=== PATIENT | female | born 1935 | race Caucasian/White ===

== ENCOUNTER → 2017-01-07 | Outpatient (CLI) | payer BC ==
[~2017-01-07] MED LIST: ASPI81TA21 PO; ATOR80TA PO; CALCTAB5 PO; CIPR-255 PO; DICL1GEL12 TOP; FISHOIL PO; MELO7.5T7 PO; METO1TAB66 PO; MULT-190 PO; PANT40TA PO; TRAZ1TAB16 PO
[2017-01-07 09:46] LABS: BLOOD UREA NITROGEN 15 mg/dl (7-18); BUN/CREATININE RATIO 17.5 (10-20); CALCIUM 8.9 mg/dl (8.5-10.1); CARBON DIOXIDE 27 mmol/L (21-32); CHLORIDE 105 mmol/L (98-107); CREATININE 0.87 mg/dl (0.60-1.20); GLUCOSE 99 mg/dl (70-99); POTASSIUM 4.1 mmol/L (3.5-5.1); SODIUM 138 mmol/L (136-145)
[2017-01-07 09:48] LABS: ESTIMATED AVERAGE GLUCOSE 120 mg/dl; HA1C FLAG Normal (Normal)
--- NOTE | 2017-01-12 08:35 | CODING QUERY MEDICAL NECESSITY ---
SUPPORTING DIAGNOSIS NEEDED A supporting diagnosis is required for the test/procedure performed on this patient in order for us to be reimbursed by the patient's insurance. Please provide a supporting diagnosis for the following test/procedure listed below next to the test name along with your signature. *If there is no additional diagnosis for this patient that would support the following test/procedure please document that below next to the test/procedure. Test(s)/Procedure(s) that require a supporting diagnosis: DOS 01/07 * Hba1c DIAGNOSIS: Provider Signature: Date: Thank you Amelia [facility] Once completed, please kindly fax back to [phone] For questions please call [phone]
== END | disposition home or self-care (01) ==
LOC: C.LAB1850 08:28
PROVIDERS: ATTEND Internal Medicine
DX: R73.03 Prediabetes (principal); E53.8 Deficiency of other specified B group vitamins; I25.10 Atherosclerotic heart disease of native coronary artery without angina pectoris; R73.9 Hyperglycemia, unspecified

== ENCOUNTER → 2017-04-13 | Outpatient (CLI) | payer BC ==
[~2017-04-13] MED LIST changes: +METO-452 PO; -METO1TAB66 PO; +TRAZ-119 PO; -TRAZ1TAB16 PO
== END | disposition home or self-care (01) ==
LOC: C.RDSM 10:50
PROVIDERS: ATTEND Physical Medicine & Rehabilitation Sports Medicine
DX: M25.561 Pain in right knee (principal); M25.562 Pain in left knee

== ENCOUNTER → 2017-08-13 | Outpatient (CLI) | payer BC ==
[~2017-08-13] MED LIST changes: -METO-452 PO; +METO1TAB66 PO; -TRAZ-119 PO; +TRAZ1TAB16 PO
[2017-08-13 09:46] LABS: BASO % 0.2 %; BASO ABS # 0.01 K/uL (0-0.2); COMPLETE YES; EOS % 2.8 %; HEMATOCRIT 40.1 % (37-47); IG% 0.2 %; LYMPH % 23.9 %; LYMPH ABS # 1.21 K/uL (1.2-3.4); MEAN CELL VOLUME 94.4 fL (80-100); MEAN CORPUSCULAR HEMOGLOBIN 31.3 pg (25-34); MEAN CORPUSCULAR HGB CONC 33.2 g/dl (32-36); MEAN PLATELET VOLUME 9.2 fL (7.4-10.4); MONO % 11.3 %; NEUT % 61.6 %; PLATELET COUNT 230 K/uL (130-400); RED BLOOD COUNT 4.25 M/uL (4.2-5.4); WHITE BLOOD COUNT 5.06 K/uL (4.8-10.8)
[2017-08-13 09:55] LABS: ALT/SGPT 32 U/L (12-78); AST/SGOT 20 U/L (15-37); BLOOD UREA NITROGEN 16 mg/dl (7-18); BUN/CREATININE RATIO 18.9 (10-20); CALCIUM 9.2 mg/dl (8.5-10.1); CARBON DIOXIDE 26 mmol/L (21-32); CHLORIDE 108 mmol/L (98-107); CREATININE 0.85 mg/dl (0.60-1.20); GLUCOSE 93 mg/dl (70-99); POTASSIUM 4.4 mmol/L (3.5-5.1); SODIUM 140 mmol/L (136-145)
[2017-08-13 09:58] LABS: CHOLESTEROL 157 mg/dl (0-200); CHOLESTEROL/HDL RATIO 2.8; HDL CHOLESTEROL 57 mg/dl; LDL CHOLESTEROL CALCULATED 82 mg/dl; TRIGLYCERIDES 89 mg/dl (0-150); VERY LOW DENSITY LIPOPROT CALC 18 mg/dl
[2017-08-13 09:59] LABS: ESTIMATED AVERAGE GLUCOSE 126 mg/dl; HA1C FLAG Normal (Normal)
== END | disposition home or self-care (01) ==
LOC: C.LAB1850 08:27
PROVIDERS: ATTEND Internal Medicine
DX: R73.03 Prediabetes (principal); E53.8 Deficiency of other specified B group vitamins; E78.5 Hyperlipidemia, unspecified; R73.9 Hyperglycemia, unspecified

== ENCOUNTER → 2018-01-31 | Outpatient (CLI) | payer BC ==
[~2018-01-31] MED LIST changes: +METO-452 PO; -METO1TAB66 PO; +TRAZ-119 PO; -TRAZ1TAB16 PO
[2018-01-31 10:50] LABS: ALT/SGPT 21 U/L (12-78); AST/SGOT 12 U/L (15-37); BLOOD UREA NITROGEN 25 mg/dl (7-18); CALCIUM 8.6 mg/dl (8.5-10.1); CARBON DIOXIDE 25 mmol/L (21-32); CHOLESTEROL 131 mg/dl (0-200); CREATININE 0.89 mg/dl (0.60-1.20); GLUCOSE 86 mg/dl (70-99); POTASSIUM 4.2 mmol/L (3.5-5.1); SODIUM 141 mmol/L (136-145)
[2018-01-31 11:01] LABS: LDL CHOLESTEROL CALCULATED 67 mg/dl
== END | disposition home or self-care (01) ==
LOC: C.LAB1850 09:04
PROVIDERS: ATTEND Internal Medicine
DX: E78.5 Hyperlipidemia, unspecified (principal); R73.03 Prediabetes; F41.8 Other specified anxiety disorders; E53.8 Deficiency of other specified B group vitamins; M81.0 Age-related osteoporosis without current pathological fracture

== ENCOUNTER → 2018-06-06 | Outpatient (CLI) | payer BC ==
[~2018-06-06] MED LIST changes: +ASPI-319 PO; -ASPI81TA21 PO; -TRAZ-119 PO; +TRAZ1TAB96 PO
--- NOTE | 2018-06-06 16:49 | DIAGNOSTIC IMAGING REPORT ---
L RIBS UNILATERAL WITH PA CHEST CLINICAL HISTORY: R29.898 Suspected fracture of rib of left sideR07.81 Rib pain on trauma. Pain. COMPARISON STUDY: None FINDINGS: Negative left ribs. No acute process of the chest. IMPRESSION: Negative study The above report was generated using voice recognition software. It may contain grammatical, syntax or spelling errors. Electronically signed by: Luis Alfredo Olson M.D. 06/06/2018 4:48 PM Dictated Date/Time: 06/06/2018 4:44 PM
== END | disposition home or self-care (01) ==
LOC: C.RAD1850 16:25
PROVIDERS: ATTEND Nurse Practitioner Adult Health
DX: R07.81 Pleurodynia (principal); R29.898 Other symptoms and signs involving the musculoskeletal system; W19.XXXA Unspecified fall, initial encounter

== ENCOUNTER → 2018-06-27 | Outpatient (CLI) | payer BC | END | disposition home or self-care (01) | LOC: C.LAB1850 11:19 | PROVIDERS: ATTEND Internal Medicine | DX: E55.9 Vitamin D deficiency, unspecified (principal); E53.8 Deficiency of other specified B group vitamins ==

== ENCOUNTER 2023-01-01 17:57 | Observation (INO) ==
--- NOTE | 2023-01-01 18:08 | ED Triage Note ---
Date of Service January 01, 2023 History of Present Illness This patient was briefly evaluated while in triage. An abbreviated physical exam was performed. This patient is a 87-year-old Female with past medical history of right macular degeneration who presents to the ED for evaluation of left eye visual disturbance. The patient was referred to the emergency department by her eye doctor for possible TIA work-up. The patient reports that she has always had visual issues with the right eye, but her left visual disturbance started yesterday, but it is back to normal today. She reports that she had vision loss for approximate 10 minutes. She denies any eye pain or headache. Physical Exam CONSTITUTIONAL: Healthy and well nourished. Alert and oriented X 3. HEENT: No scleral icterus or conjunctival injection. Pupils are equal and round and reactive to light RESPIRATORY: Clear to auscultation bilaterally with no wheezing, crackles, rhonchi or stridor. CARDIOVASCULAR: Regular rate and rhythm with no murmurs, rubs or gallops. MUSCULOSKELETAL: Equal handgrip bilaterally. INTEGUMENTARY: No rash or other significant dermatologic conditions noted. HEMATOLOGIC: No ecchymosis or petechiae. PSYCHIATRIC: Positive affect. NEUROLOGIC: Cranial nerves II-XII grossly intact. No focal neurologic deficits noted. Initial orders for labs and / or imaging were placed and patient was placed in the waiting area until a bed is available. Please see further documentation for the full ED course. MDM / Impression Impression Impression: AF (amaurosis fugax), HTN (hypertension)
[2023-01-01 20:00] LABS: Basophils # (auto) 0.03 K/uL (0-0.2); Basophils % (auto) 0.4 %; Eosinophils # (auto) 0.09 K/uL (0-0.50); Eosinophils % (auto) 1.2 %; Hematocrit (blood only) 39.1 % (37.0-47.0); Hemoglobin 13.3 g/dl (12.0-16.0); Immature Granulocytes # (auto) 0.03 K/uL (0.01-0.20); Immature Granulocytes % (auto) 0.4 %; Lymphocytes # (auto) 1.15 K/uL (1.2-3.4); Lymphocytes % (auto) 15.2 %; Mean Corpuscular Hemoglobin 31.7 pg (25.0-34.0); Mean Corpuscular Volume 93.1 fL (80.0-100.0); Mean Platelet Volume 9.1 fL (9.4-12.4); Monocytes # (auto) 0.99 K/uL (0.11-0.59); Neutrophils % (auto) 69.8 %; Platelet Count 251 K/uL (130-400); RDW Coefficient of Variation 13.4 % (11.5-14.5); RDW Standard Deviation 45.7 fL (36.4-46.3); White Blood Count 7.59 K/ul (4.8-10.8)
[2023-01-01 20:19] LABS: Alanine Aminotransferase 15 U/L (7-52); Albumin Globulin Ratio 1.6 (0.9-2); Albumin Level 4.2 gm/dl (3.4-5.0); Alkaline Phosphatase 80 U/L (34-104); Anion Gap 5 (3-11); Aspartate Aminotransferase 15 U/L (13-39); BUN Creatinine Ratio 20.6 (10-20); Bilirubin,Total 0.7 mg/dl (0.2-1.0); Blood Urea Nitrogen 20 mg/dl (6-23); Calcium 9.8 mg/dl (8.5-10.1); Carbon Dioxide 25 mmol/L (21-32); Chloride 110 mmol/L (98-107); Est GFR (African American) 61.3 ml/min; Est GFR (Non-African American) 52.9 ml/min; Globulin 2.6 gm/dl (2.5-4.0); Glucose 94 mg/dl (70-99(Fasting)); Potassium 4.7 mmol/L (3.5-5.1); Sodium 140 mmol/L (136-145); Total Protein 6.8 gm/dl (6.0-8.3)
[2023-01-01 20:25] LABS: Troponin I High Sensitivity 6.1 pg/ml (0-14)
[2023-01-01 20:28] LABS: Partial Thromboplastin Ratio 1.1; Partial Thromboplastin Time 28.9 Seconds (21.0-31.0); Prothrombin Time 10.6 Seconds (9.0-12.0)
[2023-01-01] MEDS ORDERED: ASPIRIN 81 MG CHEW PO STA (22:44)
--- NOTE | 2023-01-01 22:46 | Emergency Department Note ---
Impression & Plan AF (amaurosis fugax), HTN (hypertension) ED Provider Note Provider: Michael Radford MD DATE OF SERVICE: 01/01/2023 CHIEF COMPLAINT: Transient left visual changes HISTORY OF PRESENT ILLNESS: Patient is a 87-year-old female history of CABG, hypertension, and CAD presenting here referred by her eye doctor today. Patient states last evening she had a transient episode where a black curtain came across her left eye vision. States she is history of distant cataract surgery as well as glaucoma in the right eye. Has not had an episode like this before. States it was transient and resolved. Went to her eye doctor today. She she has been having issues with her glasses and vision for some time. Blood pressure somewhat elevated there and based on the story after evaluation sent here for further evaluation. Maybe a little bit of pain under the left eye reported. PAST MEDICAL HISTORY: As noted above MEDICATIONS: Reviewed home medications but not consistently taking aspirin. Did not take her meds yet today. SOCIAL HISTORY: , lives by herself PHYSICAL EXAM: GENERAL: alert and oriented in no acute distress on stretcher Head: normocephalic and atraumatic EYES: No injection, discharge or icterus. PERRL, EOMI. no gross visual field deficits on exam. NECK: Trachea midline. Supple. ENT: Mucous membranes pink and moist. Pharynx without erythema or exudate. LUNGS: Airway patent. No retractions. Breath sounds clear with good air entry bilaterally. HEART: Regular rate and rhythm. No chest wall tenderness SKIN: Acyanotic, warm, dry EXTREMITIES: Without tenderness or deformity with trace pedal swelling bilaterally. NEUROLOGICAL: No focal deficits. No aphasia. No facial droop or slurred speech. Normal strength and tone in the extremities. Sensation to gross touch normal. Ambulatory. EK bpm normal sinus rhythm. No PVC or PAC. No acute ST segment elevation or depression with a QTc of 435 CONTINUOUS CARDIAC MONITORING: was ordered and showed a heart rate of 60s-70s bpm in normal sinus rhythm Patient's laboratory studies and imaging reviewed. Differential includes Infection, dehydration, metabolic abnormality, hypo/hyperglycemia, electrolyte disturbance, anemia, hypoxia, cardiac sources, intracerebral event/neurologic, ophthalmologic as well as other pathologies. IMPRESSION/MEDICAL DECISION MAKING: No significant numbness or weakness or gross gross deficits. No facial droop. Denies significant issues with the right eye. Story sounds concerning for amaurosis fugax. Resolved symptoms at this time. Did complete pressures of the eyes (R 13, L 14) here but had a full evaluation of the eye doctor earlier today. CT scans including angiograms of the head and neck will be obtained. Per report no evidence of any hemorrhage or mass effect or acute stroke and unremarkable angiograms. They do note some symmetric bilateral orbital lesions determinant and almost certainly chronic per report. Again was at the eye doctor earlier today. ESR and CRP was sent. Not elevated. No significant electrolyte abnormality or signs of renal dysfunction today. Given aspirin here. Given the transient concerning neurological findings discussed with her as well as the hospitalist staying for further neurological evaluation. Blood pressure modestly elevated here. Patient does make couple of statements to me about spiders coming from the ceiling and later nursing reported that they saw someone standing behind her. Unclear if she may be experiencing some slight hallucinations as well. Urinalysis pending. DIAGNOSIS: amaurosis fugax, hypertension DISPOSITION: Hospitalist will evaluate Patient was agreeable with this plan. Past Med/Surg History Medical History Acid reflux Acute sinusitis Arteriosclerosis of carotid artery CAD (coronary artery disease) Chronic sinusitis Depression with anxiety Hyperlipidemia Hypertension Large pleural effusion Osteoarthritis of knee Osteoporosis Peripheral vascular disease Pre-diabetes Urinary tract infection Vitamin B12 deficiency Vitamin D deficiency Surgical History History of arthroscopy of knee History of cataract surgery Hx of CABG Hx of right coronary artery stent placement Family History Father Atrial fibrillation Cancer Brother Atrial fibrillation Denies family history of Colon cancer Ovarian cancer Prostate cancer Myocardial infarction Breast cancer Social History Smoking Status: Never smoker Hx Alcohol Use: No Hx Substance Use: No Preferred Language: Togolese Visual Impairment: No Limitations Hearing Ability: Normal marital status: Current Living Situation: Spouse current occupational status: retired Feels Safe at Home: Yes Childhood Exposure to Second-Hand Smoke: No Dental Care, Regularly: Yes Physical Activity Frequency: Daily Seatbelt Use: always Sunscreen Use: No Allergies Allergies Allergy/AdvReac Type Severity Reaction Status Date / Time Sulfa (Sulfonamide Allergy Mild RASH Verified 10/19/22 10:19 Antibiotics) Home Meds Home Medications Medication Instructions Recorded Confirmed aspirin 81 mg tablet 81 mg PO DAILY 06/26/19 09/02/22 cyanocobalamin (vitamin B-12) 1,000 mcg PO DAILY #1 tab 06/26/19 09/02/22 1,000 mcg tablet diclofenac sodium 1 % topical gel 2 gm topical QID #1 g 06/26/19 09/02/22 nitroglycerin 0.4 mg sublingual 0.4 mg sublingual Q5M PRN chest 06/26/19 09/02/22 tablet pain #25 tabs vit C 226 mg-vit E 90 mg-copper 1 cap PO BID 06/26/19 09/02/22 0.8 mg-zinc oxide-lutein 5 mg capsule diclofenac sodium 50 mg 50 mg PO BID 08/30/19 09/02/22 tablet,delayed release cholecalciferol (vitamin D3) 50 4,000 unit PO DAILY 07/31/21 09/02/22 mcg (2,000 unit) capsule Previous Rx's Medication Instructions Recorded ondansetron 4 mg disintegrating 4 mg PO TID PRN nausea and 02/19/22 tablet vomiting #30 tabs famotidine 40 mg tablet 40 mg PO DAILY PRN acid reflux #90 03/12/22 tabs isosorbide mononitrate 30 mg 30 mg PO DAILY #90 tabs 08/26/22 tablet,extended release 24 hr metoprolol succinate 50 mg 50 mg PO DAILY #90 tabs 08/26/22 tablet,extended release 24 hr rosuvastatin 40 mg tablet 40 mg PO DAILY #90 tabs 08/26/22 tramadol 50 mg tablet 50 mg PO Q12H PRN pain #60 tabs 09/02/22 Results & Data (ED) Vital Signs Vital Signs - 24 hr 01/01/23 18:03 01/01/23 18:07 01/01/23 18:07 Temperature 36.8 C Temperature Source Temporal Artery Scan Pulse Rate 78 79 Pulse Rate [Apical] Respiratory Rate 20 18 Respiratory Effort / Characteristics Non-Labored Respiratory Depth Normal Blood Pressure 138/77 148/82 H Blood Pressure [Right Arm] Blood Pressure Mean 97 104 Blood Pressure Mean [Right Arm] Pulse Oximetry 97 97 97 Oxygen Delivery Method Room Air Sepsis Recent Fever Within 48 Hours No Sepsis New/Unexplained Change in Mental Status N/A Sepsis Action Taken by Nursing No Action Required 01/01/23 22:43 01/01/23 23:30 Temperature Temperature Source Pulse Rate 70 Pulse Rate [Apical] 82 Respiratory Rate 18 Respiratory Effort / Characteristics Non-Labored Spontaneous Respiratory Depth Normal Blood Pressure Blood Pressure [Right Arm] 154/85 H Blood Pressure Mean Blood Pressure Mean [Right Arm] 108 Pulse Oximetry 96 Oxygen Delivery Method Room Air Sepsis Recent Fever Within 48 Hours Sepsis New/Unexplained Change in Mental Status Sepsis Action Taken by Nursing Laboratory Data 01/01/23 19:33 01/01/23 19:30 Lab Results 01/01/23 01/01/23 01/01/23 Range/Units 19:30 19:33 19:33 WBC 7.59 (4.8-10.8) K/ul RBC 4.20 (4.20-5.40) M/uL Hgb 13.3 (12.0-16.0) g/dl Hct 39.1 (37.0-47.0) % MCV 93.1 (80.0-100.0) fL MCH 31.7 (25.0-34.0) pg MCHC 34.0 (32.0-36.0) g/dL RDW Std Deviation 45.7 (36.4-46.3) fL RDW Coeff of Rhys 13.4 (11.5-14.5) % Plt Count 251 (130-400) K/uL MPV 9.1 L (9.4-12.4) fL Immature Gran % (Auto) 0.4 % Neut % (Auto) 69.8 % Lymph % (Auto) 15.2 % Woodson % (Auto) 13.0 % Eos % (Auto) 1.2 % Baso % (Auto) 0.4 % Neut # (Auto) 5.30 (1.40-6.50) K/uL Lymph # (Auto) 1.15 L (1.2-3.4) K/uL Woodson # (Auto) 0.99 H (0.11-0.59) K/uL Eos # (Auto) 0.09 (0-0.50) K/uL Baso # (Auto) 0.03 (0-0.2) K/uL Immature Gran # (Auto) 0.03 (0.01-0.20) K/uL ESR (0-30) mm/hr PT 10.6 (9.0-12.0) Seconds INR 1.0 (0.9-1.1) APTT 28.9 (21.0-31.0) Seconds PTT Ratio 1.1 Sodium 140 (136-145) mmol/L Potassium 4.7 (3.5-5.1) mmol/L Chloride 110 H (98-107) mmol/L Carbon Dioxide 25 (21-32) mmol/L Anion Gap 5 (3-11) BUN 20 (6-23) mg/dl Creatinine 0.97 (0.6-1.2) mg/dl Est Cr Clr Drug Dosing Not Reportable Est GFR ( Amer) 61.3 ml/min Est GFR (Non-Af Amer) 52.9 ml/min BUN/Creatinine Ratio 20.6 H (10-20) Glucose 94 (70-99(Fasting)) mg/dl Calcium 9.8 (8.5-10.1) mg/dl Total Bilirubin 0.7 (0.2-1.0) mg/dl AST 15 (13-39) U/L ALT 15 (7-52) U/L Alkaline Phosphatase 80 (34-104) U/L Troponin I High Sens 6.1 (0-14) pg/ml C-Reactive Protein < 0.50 (0-0.5) mg/dl Total Protein 6.8 (6.0-8.3) gm/dl Albumin 4.2 (3.4-5.0) gm/dl Globulin 2.6 (2.5-4.0) gm/dl Albumin/Globulin Ratio 1.6 (0.9-2) SARS-CoV-2, RNA, NAAT (NEGATIVE) 01/01/23 01/02/23 Range/Units 19:33 00:20 WBC (4.8-10.8) K/ul RBC (4.20-5.40) M/uL Hgb (12.0-16.0) g/dl Hct (37.0-47.0) % MCV (80.0-100.0) fL MCH (25.0-34.0) pg MCHC (32.0-36.0) g/dL RDW Std Deviation (36.4-46.3) fL RDW Coeff of Rhys (11.5-14.5) % Plt Count (130-400) K/uL MPV (9.4-12.4) fL Immature Gran % (Auto) % Neut % (Auto) % Lymph % (Auto) % Woodson % (Auto) % Eos % (Auto) % Baso % (Auto) % Neut # (Auto) (1.40-6.50) K/uL Lymph # (Auto) (1.2-3.4) K/uL Woodson # (Auto) (0.11-0.59) K/uL Eos # (Auto) (0-0.50) K/uL Baso # (Auto) (0-0.2) K/uL Immature Gran # (Auto) (0.01-0.20) K/uL ESR 13 (0-30) mm/hr PT (9.0-12.0) Seconds INR (0.9-1.1) APTT (21.0-31.0) Seconds PTT Ratio Sodium (136-145) mmol/L Potassium (3.5-5.1) mmol/L Chloride (98-107) mmol/L Carbon Dioxide (21-32) mmol/L Anion Gap (3-11) BUN (6-23) mg/dl Creatinine (0.6-1.2) mg/dl Est Cr Clr Drug Dosing Est GFR ( Amer) ml/min Est GFR (Non-Af Amer) ml/min BUN/Creatinine Ratio (10-20) Glucose (70-99(Fasting)) mg/dl Calcium (8.5-10.1) mg/dl Total Bilirubin (0.2-1.0) mg/dl AST (13-39) U/L ALT (7-52) U/L Alkaline Phosphatase (34-104) U/L Troponin I High Sens (0-14) pg/ml C-Reactive Protein (0-0.5) mg/dl Total Protein (6.0-8.3) gm/dl Albumin (3.4-5.0) gm/dl Globulin (2.5-4.0) gm/dl Albumin/Globulin Ratio (0.9-2) SARS-CoV-2, RNA, NAAT NEGATIVE (NEGATIVE) Administered Medications Discontinued Medications Aspirin (Aspirin 81 Mg Chew) 324 mg PO NOW STA Stop: 01/01/23 22:45 Last Admin: 01/01/23 23:27 Dose: 324 mg Documented By: JATINDER Ioversol (Optiray 320 500ml) 101 ml IV ONCE ONE Stop: 01/01/23 22:59 Last Admin: 01/01/23 22:51 Dose: 101 ml Documented By: SHANELL Imaging Data Radiologist's Impression: Head CT 01/01/23 22:[address] OF THE BRAIN; CT ANGIOGRAM OF THE BRAIN; CT ANGIOGRAM OF THE NECK CLINICAL HISTORY: Generalized weakness. Left-sided visual changes. COMPARISON STUDY: No priors. TECHNIQUE: Unenhanced axial CT scan of the brain is performed. Subsequently, following the IV administration of 101 of Optiray 320, CT angiogram of the head and neck was performed from the aortic arch to the vertex. Images are reviewed in the axial, sagittal, and coronal planes. 3-D MIPS images are created and assessed. IV contrast was administered without complication. All measurements were calculated based on NASCET criteria. A dose lowering technique was utilized adhering to the principles of ALARA. CT DOSE: 1066.04 mGy.cm FINDINGS: Brain parenchyma: There is age-related involutional change noting moderate subcortical and periventricular microangiopathic disease. There is no hemorrhage, mass effect, or evidence of acute territorial ischemia by CT criteria. There is no evidence of enhancing mass lesion on the angiogram phase images. The ventricles, sulci, and cisterns are prominent secondary to positional change. Xavier-white matter differentiation is preserved. No extra- axial fluid collection is seen. Thoracic aorta: There is atherosclerotic calcification of the thoracic aorta. Visualized portions of the thoracic aorta are normal in caliber. The aortic arch demonstrates standard 3-vessel anatomy. Right carotid arterial system: The right common carotid artery is widely patent, as are the right internal and external carotid arteries. Advanced calcified plaque is seen in the carotid bulb. Left carotid arterial system: The left common carotid artery is widely patent, as are the left internal and external carotid arteries. Advanced calcified plaque is seen in the carotid bulb. Vertebral arteries: The vertebral arteries are widely patent bilaterally noting right-sided dominance. Subclavian arteries: Widely patent bilaterally. Intracranial vasculature: There is atherosclerotic calcification of the cavernous carotid and vertebral arteries. The internal carotid arteries are patent at the skull base, as are the anterior and middle cerebral arteries bilaterally. The vertebrobasilar system and posterior cerebral arteries are widely patent. There is origin of the left posterior cerebral artery. A posterior communicating artery is seen on the right. The right vertebral artery is dominant. There is no aneurysm, high-grade stenosis, or focal vessel cut off seen throughout the intracranial circulation. Jugular veins: Patent bilaterally. Dural sinuses: Patent. Lung apices: Partially visualized upper lobe lung parenchyma appears clear. Soft tissues: The visualized pharyngeal soft tissues are normal in appearance noting angiographic phase technique. The oropharyngeal airway appears widely patent. The thyroid gland is enlarged and heterogeneous consistent with goiter. This extends in the superior mediastinum. The salivary glands are normal in ap pearance. No cervical lymphadenopathy is seen. Skeletal structures: The skeletal structures are osteopenic. The calvarium appears intact. The cervical spine is maintained noting multilevel spondylosis. No lytic or blastic lesion is seen. The patient is status post midline s ternotomy. Orbits: The bony orbits are intact. There are bilateral ocular lens implants. There are bilateral orbital soft tissue lesions. A 1.4 cm ovoid nodule is seen medial to the right ocular globe on image #102 and a similar appearing 0.9 cm nodule is seen medial to the left ocular globe on image #101. A 1.4 cm lesion posterior to the right globe seen on image #121 partially fills with contrast and likely represents a varix. A similar-appearing lesion is seen on the left on image #119. Sinuses and mastoids: The paranasal sinuses are clear. The mastoid air cells are well pneumatized. IMPRESSION: 1. There is no hemorrhage, mass effect, or evidence of acute territorial isc hemia by CT criteria. 2. Unremarkable CT angiogram of the brain. 3. Unremarkable CT angiogram of the neck. 4. There are relatively symmetric bilateral orbital lesions as above. These are pathologically indeterminant, and likely represent hemangiomas and/or venous varices. These are almost certainly chronic and of doubtful acute significance. Consider nonemergent follow-up with ophthalmology. ACT 112: Negative or not required by law. Electronically signed by: Michael Graves M.D. 01/01/2023 11:18 PM Head CTA 01/01/23 22:[address] OF THE BRAIN; CT ANGIOGRAM OF THE BRAIN; CT ANGIOGRAM OF THE NECK CLINICAL HISTORY: Generalized weakness. Left-sided visual changes. COMPARISON STUDY: No priors. TECHNIQUE: Unenhanced axial CT scan of the brain is performed. Subsequently, following the IV administration of 101 of Optiray 320, CT angiogram of the head and neck was performed from the aortic arch to the vertex. Images are reviewed in the axial, sagittal, and coronal planes. 3-D MIPS images are created and assessed. IV contrast was administered without complication. All measurements were calculated based on NASCET criteria. A dose lowering technique was utili zed adhering to the principles of ALARA. CT DOSE: 1066.04 mGy.cm FINDINGS: Brain parenchyma: There is age-related involutional change noting moderate subcortical and periventricular microangiopathic disease. There is no he morrhage, mass effect, or evidence of acute territorial ischemia by CT criteria. There is no evidence of enhancing mass lesion on the angiogram phase images. The ventricles, sulci, and cisterns are prominent secondary to positional change. Xavier-white matter differentiation is preserved. No extra-axial fluid collection is seen. Thoracic aorta: There is atherosclerotic calcification of the thoracic aorta. Visualized portions of the thoracic aorta are normal in caliber. The aortic arch demonstrates standard 3-vessel anatomy. Right carotid arterial system: The right common carotid artery is widely patent, as are the right internal and external carotid arteries. Advanced calcified plaque is seen in the carotid bulb. Left carotid arterial system: The left common carotid artery is widely patent, as are the left internal and external carotid arteries. Advanced calcified plaque is seen in the carotid bulb. Vertebral arteries: The vertebral arteries are widely patent bilaterally noting right-sided dominance. Subclavian arteries: Widely patent bilaterally. Intracranial vasculature: There is atherosclerotic calcification of the cavernous carotid and vertebral arteries. The internal carotid arteries are patent at the skull base, as are the anterior and middle cerebral arteries bilaterally. The vertebrobasilar system and posterior cerebral arteries are widely patent. There is origin of the left posterior cerebral artery. A posterior communicating artery is seen on the right. The right vertebral artery is dominant. There is no aneurysm, high-grade stenosis, or focal vessel cut off seen throughout the intracranial circulation. Jugular veins: Patent bilaterally. Dural sinuses: Patent. Lung apices: Partially visualized upper lobe lung parenchyma appears clear. Soft tissues: The visualized pharyngeal soft tissues are normal in appearance noting angiographic phase technique. The oropharyngeal airway appears widely patent. The thyroid gland is enlarged and heterogeneous consistent with goiter. This extends in the superior mediastinum. The salivary glands are normal in appearance. No cervical lymphadenopathy is seen. Skeletal structures: The skeletal structures are osteopenic. The calvarium appears intact. The cervical spine is maintained noting multilevel spondylosis. No lytic or blastic lesion is seen. The patient is status post midline sternotomy. Orbits: The bony orbits are intact. There are bilateral ocular lens implants. There are bilateral orbital soft tissue lesions. A 1.4 cm ovoid nodule is seen medial to the right ocular globe on image #102 and a similar appearing 0.9 cm nodule is seen medial to the left ocular globe on image #101. A 1.4 cm lesion posterior to the right globe seen on image #121 partially fills with contrast and likely represents a varix. A similar-appearing lesion is seen on the left on image #119. Sinuses and mastoids: The paranasal sinuses are clear. The mastoid air cells are well pneumatized. IMPRESSION: 1. There is no hemorrhage, mass effect, or evidence of acute territorial ischemia by CT criteria. 2. Unremarkable CT angiogram of the brain. 3. Unremarkable CT angiogram of the neck. 4. There are relatively symmetric bilateral orbital lesions as above. These are pathologically indeterminant, and likely represent hemangiomas and/or venous varices. These are almost certainly chronic and of doubtful acute significance. Consider nonemergent follow-up with ophthalmology. ACT 112: Negative or not required by law. Electronically signed by: Michael Graves M.D. 01/01/2023 11:18 PM Neck CTA 01/01/23 22:[address] OF THE BRAIN; CT ANGIOGRAM OF THE BRAIN; CT ANGIOGRAM OF THE NECK CLINICAL HISTORY: Generalized weakness. Left-sided visual changes. COMPARISON STUDY: No priors. TECHNIQUE: Unenhanced axial CT scan of the brain is performed. Subsequently, following the IV administration of 101 of Optiray 320, CT angiogram of the head and neck was performed from the aortic arch to the vertex. Images are reviewed in the axial, sagittal, and coronal planes. 3-D MIPS images are created and asse ssed. IV contrast was administered without complication. All measurements were calculated based on NASCET criteria. A dose lowering technique was utilized adhering to the principles of ALARA. CT DOSE: 1066.04 mGy.cm FINDINGS: Brain parenchyma: There is age-related involutional change noting moderate subcortical and periventricular microangiopathic disease. There is no hemorrhage, mass effect, or evidence of acute territorial ischemia by CT criteria. There is no evidence of enhancing mass lesion on the angiogram phase images. The ventricles, sulci, and cisterns are prominent secondary to positional change. Xavier-white matter differentiation is preserved. No extra- axial fluid collection is seen. Thoracic aorta: There is atherosclerotic calcification of the thoracic aorta. Visualized portions of the thoracic aorta are normal in caliber. The aortic arch demonstrates standard 3-vessel anatomy. Right carotid arterial system: The right common carotid artery is widely patent, as are the right internal and external carotid arteries. Advanced calcified plaque is seen in the carotid bulb. Left carotid arterial system: The left common carotid artery is widely patent, as are the left internal and external carotid arteries. Advanced calcified plaque is seen in the carotid bulb. Vertebral arteries: The vertebral arteries are widely patent bilaterally noting right-sided dominance. Subclavian arteries: Widely patent bilaterally. Intracranial vasculature: There is atherosclerotic calcification of the cavernous carotid and vertebral arteries. The internal carotid arteries are patent at the skull base, as are the anterior and middle cerebral arteries bilaterally. The vertebrobasilar system and posterior cerebral arteries are widely patent. There is origin of the left posterior cerebral artery. A posterior communicating artery is seen on the right. The right vertebral artery is dominant. There is no aneurysm, high-grade stenosis, or focal vessel cut off seen throughout the intracranial circulation. Jugular veins: Patent bilaterally. Dural sinuses: Patent. Lung apices: Partially visualized upper lobe lung parenchyma appears clear. Soft tissues: The visualized pharyngeal soft tissues are normal in appearance noting angiographic phase technique. The oropharyngeal airway appears widely patent. The thyroid gland is enlarged and heterogeneous consistent with goiter. This extends in the superior mediastinum. The salivary glands are normal in appearance. No cervical lymphadenopathy is seen. Skeletal structures: The skeletal structures are osteopenic. The calvarium appears intact. The cervical spine is maintained noting multilevel spondylosis. No lytic or blastic lesion is seen. The patient is status post midline sternotomy. Orbits: The bony orbits are intact. There are bilateral ocular lens implants. There are bilateral orbital soft tissue lesions. A 1.4 cm ovoid nodule is seen medial to the right ocular globe on image #102 and a similar appearing 0.9 cm nodule is seen medial to the left ocular globe on image #101. A 1.4 cm lesion posterior to the right globe seen on image #121 partially fills with contrast and likely represents a varix. A similar-appearing lesion is seen on the left on image #119. Sinuses and mastoids: The paranasal sinuses are clear. The mastoid air cells are well pneumatized. IMPRESSION: 1. There is no hemorrhage, mass effect, or evidence of acute territorial ischemia by CT criteria. 2. Unremarkable CT angiogram of the brain. 3. Unremarkable CT angiogram of the neck. 4. There are relatively symmetric bilateral orbital lesions as above. These are pathologically indeterminant, and likely represent hemangiomas and/or venous varices. These are almost certainly chronic and of doubtful acute significance. Consider nonemergent follow-up with ophthalmology. ACT 112: Negative or not required by law. Electronically signed by: Michael Graves M.D. 01/01/2023 11:18 PM Discharge Plan Visit Data Chief Complaint: TIA Symptoms Stated Complaint: HYPERTENSIVE ED Provider: Michael Radford Discharge Problem: AF (amaurosis fugax), HTN (hypertension) Patient Disposition: Being Evaluated by Hospitalist Forms Stand Alone Forms: My [facility] Prescriptions Prescriptions: No Action cholecalciferol (vitamin D3) 50 mcg (2,000 unit) capsule 4,000 unit PO DAILY diclofenac sodium 50 mg tablet,delayed release (DR/EC) 50 mg PO BID ondansetron 4 mg tablet,disintegrating 4 mg PO TID PRN (Reason: nausea and vomiting) Qty: 30 1RF tramadol 50 mg tablet 50 mg PO Q12H PRN (Reason: pain) Qty: 60 0RF aspirin 81 mg tablet 81 mg PO DAILY cyanocobalamin (vitamin B-12) 1,000 mcg tablet 1,000 mcg PO DAILY Qty: 1 vit F-B-eemixz-zinc-lutein 226 mg-200 unit -5 mg-0.8 mg capsule 1 cap PO BID diclofenac sodium 1 % gel 2 gm topical QID Qty: 1 Patient Comments: to upper extremities; do not apply more than 8 grams daily to any one affected joint nitroglycerin 0.4 mg tablet, sublingual 0.4 mg SL Q5M PRN (Reason: chest pain) Qty: 25 famotidine 40 mg tablet 40 mg PO DAILY PRN (Reason: acid reflux) Qty: 90 3RF isosorbide mononitrate 30 mg tablet extended release 24 hr 30 mg PO DAILY Qty: 90 3RF metoprolol succinate 50 mg tablet extended release 24 hr 50 mg PO DAILY Qty: 90 3RF rosuvastatin 40 mg tablet 40 mg PO DAILY Qty: 90 3RF Referrals Referrals: Jevon Ortega MD [Primary Care Provider] -
[2023-01-01] MEDS ORDERED: OPTIRAY 320 500ml IV ONE (22:58)
[2023-01-01 23:16] LABS: C Reactive Protein < 0.50 mg/dl (0-0.5)
--- NOTE | 2023-01-01 23:20 | CT Scan Report ---
UNENHANCED CT OF THE BRAIN; CT ANGIOGRAM OF THE BRAIN; CT ANGIOGRAM OF THE NECK CLINICAL HISTORY: Generalized weakness. Left-sided visual changes. COMPARISON STUDY: No priors. TECHNIQUE: Unenhanced axial CT scan of the brain is performed. Subsequently, following the IV adminis tration of 101 of [address] 320, CT angiogram of the head and neck was performed from the aortic arch t o the vertex. Images are reviewed in the axial, sagittal, and coronal planes. 3-D MIPS images are cre ated and assessed. IV contrast was administered without complication. All measurements were calculate d based on NASCET criteria. A dose lowering technique was utilized adhering to the principles of ALA RA. CT DOSE: 1066.04 mGy.cm FINDINGS: Brain parenchyma: There is age-related involutional change noting moderate subcortical and periventri cular microangiopathic disease. There is no hemorrhage, mass effect, or evidence of acute territorial ischemia by CT criteria. There is no evidence of enhancing mass lesion on the angiogram phase images . The ventricles, sulci, and cisterns are prominent secondary to positional change. Xavier-white matter differentiation is preserved. No extra-axial fluid collection is seen. Thoracic aorta: There is atherosclerotic calcification of the thoracic aorta. Visualized portions of the thoracic aorta are normal in caliber. The aortic arch demonstrates standard 3-vessel anatomy. Right carotid arterial system: The right common carotid artery is widely patent, as are the right int ernal and external carotid arteries. Advanced calcified plaque is seen in the carotid bulb. Left carotid arterial system: The left common carotid artery is widely patent, as are the left business management intern al and external carotid arteries. Advanced calcified plaque is seen in the carotid bulb. Vertebral arteries: The vertebral arteries are widely patent bilaterally noting right-sided dominance . Subclavian arteries: Widely patent bilaterally. Intracranial vasculature: There is atherosclerotic calcification of the cavernous carotid and vertebr al arteries. The internal carotid arteries are patent at the skull base, as are the anterior and midd le cerebral arteries bilaterally. The vertebrobasilar system and posterior cerebral arteries are wide ly patent. There is origin of the left posterior cerebral artery. A posterior communicating art cindi is seen on the right. The right vertebral artery is dominant. There is no aneurysm, high-grade st enosis, or focal vessel cut off seen throughout the intracranial circulation. Jugular veins: Patent bilaterally. Dural sinuses: Patent. Lung apices: Partially visualized upper lobe lung parenchyma appears clear. Soft tissues: The visualized pharyngeal soft tissues are normal in appearance noting angiographic pha se technique. The oropharyngeal airway appears widely patent. The thyroid gland is enlarged and heter ogeneous consistent with goiter. This extends in the superior mediastinum. The salivary glands are no rmal in appearance. No cervical lymphadenopathy is seen. Skeletal structures: The skeletal structures are osteopenic. The calvarium appears intact. The cervic al spine is maintained noting multilevel spondylosis. No lytic or blastic lesion is seen. The patient is status post midline sternotomy. Orbits: The bony orbits are intact. There are bilateral ocular lens implants. There are bilateral orb ital soft tissue lesions. A 1.4 cm ovoid nodule is seen medial to the right ocular globe on image #10 2 and a similar appearing 0.9 cm nodule is seen medial to the left ocular globe on image #101. A 1.4 cm lesion posterior to the right globe seen on image #121 partially fills with contrast and likely re presents a varix. A similar-appearing lesion is seen on the left on image #119. Sinuses and mastoids: The paranasal sinuses are clear. The mastoid air cells are well pneumatized. IMPRESSION: 1. There is no hemorrhage, mass effect, or evidence of acute territorial ischemia by CT criteria. 2. Unremarkable CT angiogram of the brain. 3. Unremarkable CT angiogram of the neck. 4. There are relatively symmetric bilateral orbital lesions as above. 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 These are almost certainly chronic a nd of doubtful acute significance. Consider nonemergent follow-up with ophthalmology. ACT 112: Negative or not required by law. Electronically signed by: Michael Graves M.D. 01/01/2023 11:18 PM
--- NOTE | 2023-01-02 00:33 | History & Physical Report ---
Date of Service January 02, 2023 Assessment & Plan (1) Transient vision disturbance of left eye: Plan: 87 yo female with PMHx of CABG, HTN, GERD, HLD, B12 deficiency, and CAD presented for transient L sided vision loss. #Transient L sided vision loss -last night felt like curtain dropped in L eye and had vision loss for "minutes." Otherwise asymptomatic. Referred here by eye doctor. Suspect amaurosis fugax. Admitted for stroke workup. -Head CT: no hemorrhage, mass effect, or evidence of acute territorial ischemia -Head/neck CTA: advanced calcified plaque is seen in the carotid bulb otherwise carotids patent -aspirin given in ED -lipids wnl -A1c pending -echo ordered; will defer MRI for now -neurochecks q6h -consider neuro consult #Acute encephalopathy? -reports of visual hallucinations prior to being seen. No active signs of hallucinations or confusion. -UA pending to r/o UTI -cont. to monitor #Bilateral orbital lesions -incidental finding on CT. Likely represent chronic hemangiomas and/or venous varices. -Consider nonemergent follow-up with ophthalmology. #CAD #H/o CABG #HTN -cont. home aspirin, imdur, metoprolol #HLD -cont. home rosuvastatin #B12 deficiency -B12 125 -cont. daily supplementation #GERD -cont. home pepcid prn DVT ppx: SCDs, anticipate early discharge FEN/GI: HH Code Status: full Dispo: med surg (2) HTN (hypertension): (3) Hx of right coronary artery stent placement: (4) Vitamin B12 deficiency: (5) Hyperlipidemia: (6) CAD (coronary artery disease): History of Present Illness Chief Complaint: Transient vision loss Primary Care Provider: Jevon Ortega MD 87 yo female with PMHx of CABG, HTN, HLD, B12 deficiency, and CAD presented for transient L sided vision loss. She was referred to the ER by her eye doctor. Last evening she had a transient episode where a black curtain came down her left eye resulting in vision loss. She is unsure how long the vision loss lasted but it was "minutes" not "hours." Otherwise asymptomatic at the time. Once vision returned she was back to her baseline. She does endorse a h/o distant cataract surgery as well as glaucoma in the right eye.Has not had an episode like this before. Denies chest pain, sob, headache, tinnitus, abd pain, dysuria, constipation/diarrhea, extremity weakness. Of note, prior to being seen by myself, nursing stated that patient endorsed seeing spiders crawling on the amos and a person that was not actually in the room. Unclear but when seen by myself she denied any hallucinations. Allergies Allergy/AdvReac Type Severity Reaction Status Date / Time Sulfa (Sulfonamide Allergy Mild RASH Verified 09/02/22 10: Antibiotics) Home Medications Medication Instructions Recorded Confirmed Type aspirin 81 mg tablet 81 mg PO DAILY 06/26/19 09/02/22 History cyanocobalamin (vitamin B-12) 1,000 mcg PO DAILY #1 tab 06/26/19 09/02/22 History 1,000 mcg tablet diclofenac sodium 1 % topical gel 2 gm topical QID #1 g 06/26/19 09/02/22 History nitroglycerin 0.4 mg sublingual 0.4 mg sublingual Q5M PRN chest 06/26/19 09/02/22 History tablet pain #25 tabs vit C 226 mg-vit E 90 mg-copper 1 cap PO BID 06/26/19 09/02/22 History 0.8 mg-zinc oxide-lutein 5 mg capsule diclofenac sodium 50 mg 50 mg PO BID 08/30/19 09/02/22 History tablet,delayed release cholecalciferol (vitamin D3) 50 4,000 unit PO DAILY 07/31/21 09/02/22 History mcg (2,000 unit) capsule ondansetron 4 mg disintegrating 4 mg PO TID PRN nausea and 02/19/22 09/02/22 Rx tablet vomiting #30 tabs famotidine 40 mg tablet 40 mg PO DAILY PRN acid reflux #90 03/12/22 09/02/22 Rx tabs isosorbide mononitrate 30 mg 30 mg PO DAILY #90 tabs 08/26/22 09/02/22 Rx tablet,extended release 24 hr metoprolol succinate 50 mg 50 mg PO DAILY #90 tabs 08/26/22 09/02/22 Rx tablet,extended release 24 hr rosuvastatin 40 mg tablet 40 mg PO DAILY #90 tabs 08/26/22 09/02/22 Rx tramadol 50 mg tablet 50 mg PO Q12H PRN pain #60 tabs 09/02/22 09/02/22 Rx Past Med/Surg History Medical History Acid reflux Acute sinusitis Arteriosclerosis of carotid artery CAD (coronary artery disease) Chronic sinusitis Depression with anxiety Hyperlipidemia Hypertension Large pleural effusion Osteoarthritis of knee Osteoporosis Peripheral vascular disease Pre-diabetes Urinary tract infection Vitamin B12 deficiency Vitamin D deficiency Surgical History History of arthroscopy of knee History of cataract surgery Hx of CABG Hx of right coronary artery stent placement Family History Father Atrial fibrillation Cancer Brother Atrial fibrillation Denies family history of Colon cancer Ovarian cancer Prostate cancer Myocardial infarction Breast cancer Social History Smoking Status: Never smoker Hx Alcohol Use: No Hx Substance Use: No Preferred Language: Khmer Communication Ability: Effective Visual Impairment: No Limitations Hearing Ability: Normal 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 Beliefs That Will Affect Care: None marital status: Current Living Situation: Alone current occupational status: retired Other Information That Helps Us Care for You: No Feels Safe at Home: Yes Safety Concerns: Feels Safe At This Time Childhood Exposure to Second-Hand Smoke: No Dental Care, Regularly: Yes Physical Activity Frequency: Daily Seatbelt Use: always Sunscreen Use: No Assistive Devices: Cane, Glasses and Walker Review of Systems Review of Systems: All systems reviewed & are unremarkable except as noted in HPI & below Physical Exam Physical Exam: Constitutional: Well-developed, well-nourished patient, in no acute distress, pleasant and normal affect, intact memory. Vitals as above. HEENT: No scleral injection or discharge.Moist mucous membranes. Neck: Supple without lymphadenopathy or thyromegaly. Trachea midline. Lungs: Clear to auscultation bilaterally with good effort. No wheezes/rales/rhonchi. Cardiac: Regular rate and rhythm. No extremity edema. Abdomen: Bowel sounds present. Soft, nontender, and nondistended.No guarding or rebound tenderness. No hepatosplenomegaly. MSK: No cyanosis or clubbing. Extremities motor strength 5/5. Skin: No rashes, warm, dry. Neurologic: Grossly intact cranial nerves without focal deficits. PERRL. EOMI. Results & Data Results & Data ([facility]) Vital Signs (Past 12 Hours) Vital Signs Temp Pulse Pulse Resp BP BP Pulse Ox 01/01/23 23:30 82 18 154/85 H 96 01/01/23 22:43 70 01/01/23 18:07 97 01/01/23 18:07 79 18 148/82 H 97 01/01/23 18:03 36.8 C 78 20 138/77 97 O2 Del Method 01/01/23 23:30 Room Air 01/01/23 22:43 01/01/23 18:07 01/01/23 18:07 01/01/23 18:03 Room Air Laboratory Results Laboratory Results WBC 7.59 K/ul (4.8-10.8) 01/01/23 19:33 RBC 4.20 M/uL (4.20-5.40) 01/01/23 19:33 Hgb 13.3 g/dl (12.0-16.0) 01/01/23 19:33 Hct 39.1 % (37.0-47.0) 01/01/23 19:33 MCV 93.1 fL (80.0-100.0) 01/01/23 19:33 MCH 31.7 pg (25.0-34.0) 01/01/23 19:33 MCHC 34.0 g/dL (32.0-36.0) 01/01/23 19:33 RDW Std Deviation 45.7 fL (36.4-46.3) 01/01/23 19:33 RDW Coeff of Rhys 13.4 % (11.5-14.5) 01/01/23 19:33 Plt Count 251 K/uL (130-400) 01/01/23 19:33 MPV 9.1 fL (9.4-12.4) L 01/01/23 19:33 Immature Gran % (Auto) 0.4 % 01/01/23 19:33 Neut % (Auto) 69.8 % 01/01/23 19:33 Lymph % (Auto) 15.2 % 01/01/23 19:33 [place] % (Auto) 13.0 % 01/01/23 19:33 Eos % (Auto) 1.2 % 01/01/23 19:33 Baso % (Auto) 0.4 % 01/01/23 19: Neut # (Auto) 5.30 K/uL (1.40-6.50) 01/01/23 19: Lymph # (Auto) 1.15 K/uL (1.2-3.4) L 01/01/23: [place] # (Auto) 0.99 K/uL (0.11-0.59) H 01/01/23: Eos # (Auto) 0.09 K/uL (0-0.50) 01/01/23: Baso # (Auto) 0.03 K/uL (0-0.2) 01/01/23: Immature Gran # (Auto) 0.03 K/uL (0.01-0.20) 01/01/23: ESR 13 mm/hr (0-30) 01/01/23: PT 10.6 Seconds (9.0-12.0) 01/01/23: INR 1.0 (0.9-1.1) 01/01/23: APTT 28.9 Seconds (21.0-31.0) 01/01/23: PTT Ratio 1.1 01/01/23: Sodium 140 mmol/L (136-145) 01/01/23 19: Potassium 4.7 mmol/L (3.5-5.1) 01/01/23 19: Chloride 110 mmol/L (98-107) H 01/01/23 19:30 Carbon Dioxide 25 mmol/L (21-32) 01/01/23 19: Anion Gap 5 (3-11) 01/01/23 19:30 BUN 20 mg/dl (6-23) 01/01/23 19: Creatinine 0.97 mg/dl (0.6-1.2) 01/01/23 19: Est Cr Clr Drug Dosing Not Reportable 01/01/23 19:30 Est GFR ( Amer) 61.3 ml/min 01/01/23 19:30 Est GFR (Non-Af Amer) 52.9 ml/min 01/01/23 19:30 BUN/Creatinine Ratio 20.6 (10-20) H 01/01/23 19:30 Glucose 94 mg/dl (70-99(Fasting)) 01/01/23 19:30 Calcium 9.8 mg/dl (8.5-10.1) 01/01/23 19:30 Total Bilirubin 0.7 mg/dl (0.2-1.0) 01/01/23 19:30 AST 15 U/L (13-39) 01/01/23 19:30 ALT 15 U/L (7-52) 01/01/23 19:30 Alkaline Phosphatase 80 U/L (34-104) 01/01/23 19:30 Troponin I High Sens 6.1 pg/ml (0-14) 01/01/23 19: C-Reactive Protein < 0.50 mg/dl (0-0.5) 01/01/23 19: Total Protein 6.8 gm/dl (6.0-8.3) 01/01/23 19:30 Albumin 4.2 gm/dl (3.4-5.0) 01/01/23: Globulin 2.6 gm/dl (2.5-4.0) 01/01/23 19:30 Albumin/Globulin Ratio 1.6 (0.9-2) 01/01/23 19:30 SARS-CoV-2, RNA, NAAT NEGATIVE (NEGATIVE) 01/02/23 00:[address] 01/01/23 22:[address] OF THE BRAIN; CT ANGIOGRAM OF THE BRAIN; CT ANGIOGRAM OF THE NECK CLINICAL HISTORY: Generalized weakness. Left-sided visual changes. COMPARISON STUDY: No priors. TECHNIQUE: Unenhanced axial CT scan of the brain is performed. Subsequently, following the IV administration of 101 of Optiray 320, CT angiogram of the head and neck was performed from the aortic arch to the vertex. Images are reviewed in the axial, sagittal, and coronal planes. 3-D MIPS images are created and assessed. IV contrast was administered without complication. All measurements were calculated based on NASCET criteria. A dose lowering technique was utilized adhering to the principles of ALARA. CT DOSE: 1066.04 mGy.cm FINDINGS: Brain parenchyma: There is age-related involutional change noting moderate subcortical and periventricular microangiopathic disease. There is no hemorrhage, mass effect, or evidence of acute territorial ischemia by CT criteria. There is no evidence of enhancing mass lesion on the angiogram phase images. The ventricles, sulci, and cisterns are prominent secondary to positional change. Xavier-white matter differentiation is preserved. No extra- axial fluid collection is seen. Thoracic aorta: There is atherosclerotic calcification of the thoracic aorta. Visualized portions of the thoracic aorta are normal in caliber. The aortic arch demonstrates standard 3-vessel anatomy. Right carotid arterial system: The right common carotid artery is widely patent, as are the right internal and external carotid arteries. Advanced calcified plaque is seen in the carotid bulb. Left carotid arterial system: The left common carotid artery is widely patent, as are the left internal and external carotid arteries. Advanced calcified plaque is seen in the carotid bulb. Vertebral arteries: The vertebral arteries are widely patent bilaterally noting right-sided dominance. Subclavian arteries: Widely patent bilaterally. Intracranial vasculature: There is atherosclerotic calcification of the cavernous carotid and vertebral arteries. The internal carotid arteries are patent at the skull base, as are the anterior and middle cerebral arteries bilaterally. The vertebrobasilar system and posterior cerebral arteries are widely patent. There is origin of the left posterior cerebral artery. A posterior communicating artery is seen on the right. The right vertebral artery is dominant. There is no aneurysm, high-grade stenosis, or focal vessel cut off seen throughout the intracranial circulation. Jugular veins: Patent bilaterally. Dural sinuses: Patent. Lung apices: Partially visualized upper lobe lung parenchyma appears clear. Soft tissues: The visualized pharyngeal soft tissues are normal in appearance noting angiographic phase technique. The oropharyngeal airway appears widely patent. The thyroid gland is enlarged and heterogeneous consistent with goiter. This extends in the superior mediastinum. The salivary glands are normal in appearance. No cervical lymphadenopathy is seen. Skeletal structures: The skeletal structures are osteopenic. The calvarium appears intact. The cervical spine is maintained noting multilevel spondylosis. No lytic or blastic lesion is seen. The patient is status post midline sternotom y. Orbits: The bony orbits are intact. There are bilateral ocular lens implants. There are bilateral orbital soft tissue lesions. A 1.4 cm ovoid nodule is seen medial to the right ocular globe on image #102 and a similar appearing 0.9 cm nodule is seen medial to the left ocular globe on image #101. A 1.4 cm lesion posterior to the right globe seen on image #121 partially fills with contrast and likely represents a varix. A similar-appearing lesion is seen on the left on image #119. Sinuses and mastoids: The paranasal sinuses are clear. The mastoid air cells are well pneumatized. IMPRESSION: 1. There is no hemorrhage, mass effect, or evidence of acute territorial ischemia by CT criteria. 2. Unremarkable CT angiogram of the brain. 3. Unremarkable CT angiogram of the neck. 4. There are relatively symmetric bilateral orbital lesions as above. These are pathologically indeterminant, and likely represent hemangiomas and/or venous varices. These are almost certainly chronic and of doubtful acute significance. Consider nonemergent follow-up with ophthalmology. ACT 112: Negative or not required by law. Electronically signed by: Michael Graves M.D. 01/01/2023 11:18 PM Head CTA 01/01/23 22:[address] OF THE BRAIN; CT ANGIOGRAM OF THE BRAIN; CT ANGIOGRAM OF THE NECK CLINICAL HISTORY: Generalized weakness. Left-sided visual changes. COMPARISON STUDY: No priors. TECHNIQUE: Unenhanced axial CT scan of the brain is performed. Subsequently, following the IV administration of 101 of Optiray 320, CT angiogram of the head and neck was performed from the aortic arch to the vertex. Images are reviewed in the axial, sagittal, and coronal planes. 3-D MIPS images are created and assessed. IV contrast was administered without complication. All measurements were calculated based on NASCET criteria. A dose lowering technique was utilized adhering to the principles of ALARA. CT DOSE: 1066.04 mGy.cm FINDINGS: Brain parenchyma: There is age-related involutional change noting moderate subcortical and periventricular microangiopathic disease. There is no hemorrhage, mass effect, or evidence of acute territorial ischemia by CT criteria. There is no evidence of enhancing mass lesion on the angiogram phase images. The ventricles, sulci, and cisterns are prominent secondary to positional change. Xavier-white matter differentiation is preserved. No extra- axial fluid collection is seen. Thoracic aorta: There is atherosclerotic calcification of the thoracic aorta. Visualized portions of the thoracic aorta are normal in caliber. The aortic arch demonstrates standard 3-vessel anatomy. Right carotid arterial system: The right common carotid artery is widely patent, as are the right internal and external carotid arteries. Advanced calcified plaque is seen in the carotid bulb. Left carotid arterial system: The left common carotid artery is widely patent, as are the left internal and external carotid arteries. Advanced calcified plaque is seen in the carotid bulb. Vertebral arteries: The vertebral arteries are widely patent bilaterally noting right-sided dominance. Subclavian arteries: Widely patent bilaterally. Intracranial vasculature: There is atherosclerotic calcification of the cavernous carotid and vertebral arteries. The internal carotid arteries are patent at the skull base, as are the anterior and middle cerebral arteries bilaterally. The vertebrobasilar system and posterior cerebral arteries are widely patent. There is origin of the left posterior cerebral artery. A posterior communicating artery is seen on the right. The right vertebral artery is dominant. There is no aneurysm, high-grade stenosis, or focal vessel cut off seen throughout the intracranial circulation. Jugular veins: Patent bilaterally. Dural sinuses: Patent. Lung apices: Partially visualized upper lobe lung parenchyma appears clear. Soft tissues: The visualized pharyngeal soft tissues are normal in appearance noting angiographic phase technique. The oropharyngeal airway appears widely patent. The thyroid gland is enlarged and heterogeneous consistent with goiter. This extends in the superior mediastinum. The salivary glands are normal in appearance. No cervical lymphadenopathy is seen. Skeletal structures: The skeletal structures are osteopenic. The calvarium appears intact. The cervical spine is maintained noting multilevel spondylosis. No lytic or blastic lesion is seen. The patient is status post midline sternotomy. Orbits: The bony orbits are intact. There are bilateral ocular lens implants. There are bilateral orbital soft tissue lesions. A 1.4 cm ovoid nodule is seen medial to the right ocular globe on image #102 and a similar appearing 0.9 cm nodule is seen medial to the left ocular globe on image #101. A 1.4 cm lesion posterior to the right globe seen on image #121 partially fills with contrast and likely represents a varix. A similar-appearing lesion is seen on the left on image #119. Sinuses and mastoids: The paranasal sinuses are clear. The mastoid air cells are well pneumatized. IMPRESSION: 1. There is no hemorrhage, mass effect, or evidence of acute territorial ischemia by CT criteria. 2. Unremarkable CT angiogram of the brain. 3. Unremarkable CT angiogram of the neck. 4. There are relatively symmetric bilateral orbital lesions as above. These are pathologically indeterminant, and likely represent hemangiomas and/or venous varices. These are almost certainly chronic and of doubtful acute significance. Consider nonemergent follow-up with ophthalmology. ACT 112: Negative or not required by law. Electronically signed by: Michael Graves M.D. 01/01/2023 11:18 PM Neck CTA 01/01/23 22:[address] OF THE BRAIN; CT ANGIOGRAM OF THE BRAIN; CT ANGIOGRAM OF THE NECK CLINICAL HISTORY: Generalized weakness. Left-sided visual changes. COMPARISON STUDY: No priors. TECHNIQUE: Unenhanced axial CT scan of the brain is performed. Subsequently, following the IV administration of 101 of Optiray 320, CT angiogram of the head and neck was performed from the aortic arch to the vertex. Images are reviewed in the axial, sagittal, and coronal planes. 3-D MIPS images are created and assessed. IV contrast was administered without complication. All measurements were calculated based on NASCET criteria. A dose lowering technique was utilized adhering to the principles of ALARA. CT DOSE: 1066.04 mGy.cm FINDINGS: Brain parenchyma: There is age-related involutional change noting moderate suazo bcortical and periventricular microangiopathic disease. There is no hemorrhage, mass effect, or evidence of acute territorial ischemia by CT criteria. There is no evidence of enhancing mass lesion on the angiogram phase images. The ventricles, sulci, and cisterns are prominent secondary to positional change. Xavier-white matter differentiation is preserved. No extra-axial fluid collection is seen. Thoracic aorta: There is atherosclerotic calcification of the thoracic aorta. Visualized portions of the thoracic aorta are normal in caliber. The aortic arch demonstrates standard 3-vessel anatomy. Right carotid arterial system: The right common carotid artery is widely patent, as are the right internal and external carotid arteries. Advanced calcified plaque is seen in the carotid bulb. Left carotid arterial system: The left common carotid artery is widely patent, as are the left internal and external carotid arteries. Advanced calcified plaque is seen in the carotid bulb. Vertebral arteries: The vertebral arteries are widely patent bilaterally noting right-sided dominance. Subclavian arteries: Widely patent bilaterally. Intracranial vasculature: There is atherosclerotic calcification of the cavernous carotid and vertebral arteries. The internal carotid arteries are patent at the skull base, as are the anterior and middle cerebral arteries bilaterally. The vertebrobasilar system and posterior cerebral arteries are widely patent. There is origin of the left posterior cerebral artery. A posterior communicating artery is seen on the right. The right vertebral artery is dominant. There is no aneurysm, high-grade stenosis, or focal vessel cut off seen throughout the intracranial circulation. Jugular veins: Patent bilaterally. Dural sinuses: Patent. Lung apices: Partially visualized upper lobe lung parenchyma appears clear. Soft tissues: The visualized pharyngeal soft tissues are normal in appearance noting angiographic phase technique. The oropharyngeal airway appears widely patent. The thyroid gland is enlarged and heterogeneous consistent with goiter. This extends in the superior mediastinum. The salivary glands are normal in appearance. No cervical lymphadenopathy is seen. Skeletal structures: The skeletal structures are osteopenic. The calvarium appears intact. The cervical spine is maintained noting multilevel spondylosis. No lytic or blastic lesion is seen. The patient is status post midline sternotomy. Orbits: The bony orbits are intact. There are bilateral ocular lens implants. There are bilateral orbital soft tissue lesions. A 1.4 cm ovoid nodule is seen medial to the right ocular globe on image #102 and a similar appearing 0.9 cm nodule is seen medial to the left ocular globe on image #101. A 1.4 cm lesion posterior to the right globe seen on image #121 partially fills with contrast and likely represents a varix. A similar-appearing lesion is seen on the left on image #119. Sinuses and mastoids: The paranasal sinuses are clear. The mastoid air cells are well pneumatized. IMPRESSION: 1. There is no hemorrhage, mass effect, or evidence of acute territorial ischemia by CT criteria. 2. Unremarkable CT angiogram of the brain. 3. Unremarkable CT angiogram of the neck. 4. There are relatively symmetric bilateral orbital lesions as above. These are pathologically indeterminant, and likely represent hemangiomas and/or venous varices. These are almost certainly chronic and of doubtful acute significance. Consider nonemergent follow-up with ophthalmology. ACT 112: Negative or not required by law. Electronically signed by: Michael Graves M.D. 01/01/2023 11:18 PM Supervising Physician Co-Signing Physician Notes Attending addendum: I have physically seen this patient, have supervised the medical residents activities, and agree with the H&P unless as otherwise noted. Assessment and Plan: Amaurosis fugax left eye- Resolved spontaneously, without accompanying neurologic symptoms Did have transient photopsia with lightening bolt leg zigzag configuration Differential includes embolic phenomenon, TIA versus CVA, complicated migraine, others Continue aspirin CT head negative CTA head neck with advanced calcified plaque at carotid bulb Stroke without tPA order set Consult PT/OT/speech Consult neurology Permissive hypertension Bilateral orbital lesions on CT described as chronic hemangiomas versus venous varices, can follow-up with ophthalmology in the outpatient setting CAD/hypertension/history of CABG- Continue aspirin continue medications with hold parameters for permissive hypertension: Isosorbide mononitrate, metoprolol succinate, nitroglycerin sublingual's The patient will be admitted to telemetry for serial cardiac enzymes, serial EKG's, cardiac rhythm monitoring and a 2-D echocardiogram with Dopplers. Hyperlipidemia- Continue high-dose statin rosuvastatin 40 mg daily Check a fasting lipid panel GERD- Continue famotidine B12 deficiency- Continue with 1000 mcg daily supplement Vitamin D deficiency- Continue 4000 international units supplement p.o. daily Remaining orders and notations as noted Resident Activity Tracking Resident Involvement: Resident Care Provided Care Provided: Adult Hospital Medicine
[2023-01-02] MEDS ORDERED: ACETAMINOPHEN 325 MG TAB PO PRN (03:44)
[2023-01-02] MEDS ORDERED: FAMOTIDINE 40 MG TABLET PO PRN (03:44)
[2023-01-02 06:48] LABS: Appearance Urine Clear (Clear); Bacteria Urine Automated 1+ (Negative); Bilirubin Urine Negative (Negative); Blood Urine Trace (Negative); Cast Urine Automated 0 /lpf (0-5); Color Urine Yellow; Glucose Urine UA Negative (Negative); Ketones Urine Negative (Negative); Leukocyte Esterase Urine Negative (Negative); Nitrite Urine Positive (Negative); Protein Urine Negative (Negative); RBC Urine Automated 0-4 /hpf (0-4); Specific Gravity Urine > 1.045 (1.000-1.030); Urobilinogen Urine Negative (Negative)
[2023-01-02] MEDS: METOPROLOL SUCC 50MG EXT REL TAB PO SCH (08:07)
[2023-01-02] MEDS: ISOSORBIDE MONO EXTENDED REL 30 MG TABCR PO SCH (08:07)
[2023-01-02] MEDS: ASPIRIN 81 MG ECTAB PO SCH (08:07)
[2023-01-02] MEDS: ROSUVASTATIN CALCIUM 20 MG TAB PO SCH (08:07)
[2023-01-02] MEDS: CYANOCOBALAMIN (B-12) 500 MCG TABLET PO SCH (08:07)
[2023-01-02 09:30] LABS: Estimated Average Glucose 134 mg/dl; Hemoglobin A1C 6.3 % (4.5-5.6)
--- NOTE | 2023-01-02 11:19 | Electrocardiogram Report ---
Test Reason : Blood Pressure : / mmHG Vent. Rate : 069 BPM Atrial Rate : 069 BPM P-R Int : 144 ms QRS Dur : 084 ms QT Int : 406 ms P-R-T Axes : 000 003 032 degrees QTc Int : 435 ms Poor data quality, interpretation may be adversely affected Normal sinus rhythm Low voltage QRS Cannot rule out Anterior infarct (cited on or before 24-AUG-2007) Abnormal ECG When compared with ECG of 14-OCT-2012 11:24, Inverted T waves have replaced nonspecific T wave abnormality in Anterior leads Confirmed by Vitaly Díaz ([id number]) on 01/02/2023 11:18:49 AM Referred By: REFERRED SELF Confirmed By:Vitaly Díaz
--- NOTE | 2023-01-02 13:43 | Magnetic Resonance Report ---
MR brain wo con HISTORY: 87 years-old Female Transient loss of vision acute strokelike symptoms COMPARISON: Head CT 01/01/2023 TECHNIQUE: Multiplanar multisequence MRI of the brain was obtained without the use of IV contrast. FINDINGS: Previously described bilateral pleural effusions are better characterized on the comparison head CT. Prior bilateral lens repair. Soft tissues are otherwise unremarkable. Small left mastoid effusion. Th e right mastoid air cells are clear. Mild mucosal thickening of the ethmoid sinuses and nasal turbina brandon. The skull and soft tissues are within normal limits. The sinuses major arterial flow voids appea r generally patent. No restricted diffusion. Midline structures are within normal limits. Degenerative changes of the royer ged cervical spine. No acute intracranial hemorrhage, midline shift, abnormal extra-axial collection, hydrocephalus or intracranial mass. No pathologic blooming artifact on the T2 star series. Mild invo lutional changes. Moderate to extensive T2/FLAIR hyperintense foci throughout the white matter. IMPRESSION: 1. No acute intracranial abnormality. No acute or subacute infarct. 2. Moderate to extensive T2/FLAIR hyperintense foci throughout the white matter suggestive of chronic microvascular ischemic disease. 3. Bilateral orbital lesions are better characterized on the comparison head CT. As previously stated , nonemergent follow-up with ophthalmology recommended. ACT 112: Negative or not required by law. The above report was generated using voice recognition software. It may contain grammatical, syntax o r spelling errors. Electronically signed by: Montez Leahy M.D. 01/02/2023 1:41 PM
[2023-01-02] MEDS ORDERED: CLOPIDOGREL BISULFATE 75 MG TAB PO ONE (18:30)
--- NOTE | 2023-01-02 19:48 | Hospitalist Progress Note ---
Date of Service January 02, 2023 Assessment & Plan (1) Transient vision disturbance of left eye: Plan: symptoms lasted several minutes then resolved seen by her eye physician prior to admission - to her recollection her eye exam was wnl history suggestive of #2 below although carotid arteries on CTA did not show stenoses, she has a considerable amount of plaque at the carotid bulbs a small piece of plaque from the left carotid bulb could have caused her event oddly prior carotid duplex studies showed considerable b/l ICA stenosis; last u/s was 09/2022 showing 50-69% stenosis in both ICAs will review all of this with radiology tomorrow am alternatively, given her headaches, GCA is in the differential; normal sed rate and crp argue against such but 5-15% of GCA cases have normal inflammatory markers MRI brain today without acute CVA of the occipital lobes oddly there are b/l orbital lesions - ?hemangiomas? echo without source of embolus plan for neuro consult while here add plavix to her asa for secondary prevention check lipids AM, cont statin in meantime move patient to [facility] - r/o PAF consider 30-day event monitor at home consider temporal artery bx of left TA given her headaches and this visual event again need to sort out the ICA stenosis issue and the discrepant studies as above (2) AF (amaurosis fugax): Plan: left eye - see #1 above (3) Acute encephalopathy: Plan: 2nd to TIA event? 2nd to UTI? other? does patient have baseline cognitive impairment? I spoke with the pt's son by phone and he reported that he has noted his mother to have some memory problems of late would refer to neurology post-discharge for neuropsych testing (4) Bilateral headaches: Plan: reports she has had them "For years" but no mention in her medical record of such see #1 above re: discussion about ?GCA and need for TA biopsy? (5) Arteriosclerosis of carotid artery: Plan: plaque - heavy - noted on each carotid bulb cont asa add plavix cont high-intensity statin with crestor again - carotid duplex study 09/2022 showed 50-60% stenosis of each ICA b/l however, CTA carotids this admission did not show these stenoses will review the films with radiology in am (6) HTN (hypertension): Plan: well controlled cont BB cont imdur (7) Hx of right coronary artery stent placement: Plan: noted no ischemic symptoms at this time (8) Vitamin B12 deficiency: Plan: B12 level was 125 in fall 2021 repeat level am it does appear she has been taking replacement B12 at home per the med list (9) Hyperlipidemia: Plan: cont statin lipid profile in am (10) CAD (coronary artery disease): Plan: cont asa cont statin cont BB cont imdur echo today with normal EF and no WMA (11) Hx of CABG: Plan: 10/2007 - [place] (12) Pre-diabetes: Plan: a1c <6.5% diet control Plan updated pt's son & daughter in law by phone this evening transfer to med/tele to place on monitor to r/o a.fib Admission and Anticipated Discharge Date Admission Date: January 02, 2023 Subjective patient resting comfortably in bed during the visit anxious to go home she denies any recurrent ocular symptoms or visual disturbance she saw a provider at [facility] before coming to the ER for evaluation she reports that she had a severe headache this afternoon now improved states she gets headaches "all the time" and that they have been present "for years" but her medical records don't mention anything about such headaches are frontal and even sometimes over the lower face no photophobia or phonophobia no nausea or emesis denies any other focal neuro symptoms states she lives alone in [place] has 2 children 1 of which lives locally denies any past h/o a.fib Review of Systems Review of Systems: cv - no chest pain pulm - no dyspnea GI - no abd pain neuro - no focal motor weakness Physical Exam Physical Exam: gen - pleasant, mild confusion eyes - PERRL, EOMI, no nystagmus head - no tenderness to palpation over either temporal artery; no bruits b/l neck - no JVD heart - RRR, s1 s2 lungs - CTA b/l abd - soft NT ND BS+ ext - no edema, pulses 2+ b/l neuro - strength 5/5 x 4 exts; speech clear Results & Data Results & Data ([facility]) Vital Signs (Past 12 Hours) Vital Signs Temp Pulse Pulse Pulse Resp BP BP 01/02/23 17:37 60 01/02/23 15:02 37.0 C 72 16 104/62 01/02/23 12:45 36.7 C 70 24 110/70 01/02/23 08:07 01/02/23 08:04 36.7 C 70 23 110/70 Pulse Ox O2 Del Method 01/02/23 17:37 01/02/23 15:02 93 Room Air 01/02/23 12:45 94 Room Air 01/02/23 08:07 Room Air 01/02/23 08:04 94 Room Air Laboratory Results Laboratory Results - last 24 hr 01/01/23 01/01/23 01/01/23 19:30 19:33 19:33 WBC 7.59 RBC 4.20 Hgb 13.3 Hct 39.1 MCV 93.1 MCH 31.7 MCHC 34.0 RDW Std Deviation 45.7 RDW Coeff of Rhys 13.4 Plt Count 251 MPV 9.1 L Immature Gran % (Auto) 0.4 Neut % (Auto) 69.8 Lymph % (Auto) 15.2 [place] % (Auto) 13.0 Eos % (Auto) 1.2 Baso % (Auto) 0.4 Neut # (Auto) 5.30 Lymph # (Auto) 1.15 L [place] # (Auto) 0.99 H Eos # (Auto) 0.09 Baso # (Auto) 0.03 Immature Gran # (Auto) 0.03 ESR PT 10.6 INR 1.0 APTT 28.9 PTT Ratio 1.1 Sodium 140 Potassium 4.7 Chloride 110 H Carbon Dioxide 25 Anion Gap 5 BUN 20 Creatinine 0.97 Est Cr Clr Drug Dosing Not Reportable Est GFR ( Amer) 61.3 Est GFR (Non-Af Amer) 52.9 BUN/Creatinine Ratio 20.6 H Glucose 94 Estimat Average Glucose Hemoglobin A1c Calcium 9.8 Total Bilirubin 0.7 AST 15 ALT 15 Alkaline Phosphatase 80 Troponin I High Sens 6.1 C-Reactive Protein < 0.50 Total Protein 6.8 Albumin 4.2 Globulin 2.6 Albumin/Globulin Ratio 1.6 Urine Color Urine Appearance Urine pH Ur Specific [place] Urine Protein Urine Glucose (UA) Urine Ketones Urine Blood Urine Nitrite Urine Bilirubin Urine Urobilinogen Ur Leukocyte Esterase Urine WBC (Auto) Urine RBC (Auto) U Hyaline Cast (Auto) U Epithel Cells (Auto) Urine Bacteria (Auto) SARS-CoV-2, RNA, NAAT 01/01/23 01/02/23 01/02/23 19:33 00:20 06:04 WBC RBC Hgb Hct MCV MCH MCHC RDW Std Deviation RDW Coeff of Rhys Plt Count MPV Immature Gran % (Auto) Neut % (Auto) Lymph % (Auto) [place] % (Auto) Eos % (Auto) Baso % (Auto) Neut # (Auto) Lymph # (Auto) [place] # (Auto) Eos # (Auto) Baso # (Auto) Immature Gran # (Auto) ESR 13 PT INR APTT PTT Ratio Sodium Potassium Chloride Carbon Dioxide Anion Gap BUN Creatinine Est Cr Clr Drug Dosing Est GFR ( Amer) Est GFR (Non-Af Amer) BUN/Creatinine Ratio Glucose Estimat Average Glucose 134 Hemoglobin A1c 6.3 H Calcium Total Bilirubin AST ALT Alkaline Phosphatase Troponin I High Sens C-Reactive Protein Total Protein Albumin Globulin Albumin/Globulin Ratio Urine Color Urine Appearance Urine pH Ur Specific [place] Urine Protein Urine Glucose (UA) Urine Ketones Urine Blood Urine Nitrite Urine Bilirubin Urine Urobilinogen Ur Leukocyte Esterase Urine WBC (Auto) Urine RBC (Auto) U Hyaline Cast (Auto) U Epithel Cells (Auto) Urine Bacteria (Auto) SARS-CoV-2, RNA, NAAT NEGATIVE 01/02/23 06:05 WBC RBC Hgb Hct MCV MCH MCHC RDW Std Deviation RDW Coeff of Rhys Plt Count MPV Immature Gran % (Auto) Neut % (Auto) Lymph % (Auto) [place] % (Auto) Eos % (Auto) Baso % (Auto) Neut # (Auto) Lymph # (Auto) [place] # (Auto) Eos # (Auto) Baso # (Auto) Immature Gran # (Auto) ESR PT INR APTT PTT Ratio Sodium Potassium Chloride Carbon Dioxide Anion Gap BUN Creatinine Est Cr Clr Drug Dosing Est GFR ( Amer) Est GFR (Non-Af Amer) BUN/Creatinine Ratio Glucose Estimat Average Glucose Hemoglobin A1c Calcium Total Bilirubin AST ALT Alkaline Phosphatase Troponin I High Sens C-Reactive Protein Total Protein Albumin Globulin Albumin/Globulin Ratio Urine Color Yellow Urine Appearance Clear Urine pH 5.0 Ur Specific [place] > 1.045 H Urine Protein Negative Urine Glucose (UA) Negative Urine Ketones Negative Urine Blood Trace H Urine Nitrite Positive A Urine Bilirubin Negative Urine Urobilinogen Negative Ur Leukocyte Esterase Negative Urine WBC (Auto) 1-5 Urine RBC (Auto) 0-4 U Hyaline Cast (Auto) 0 U Epithel Cells (Auto) 10-20 H Urine Bacteria (Auto) 1+ H SARS-CoV-2, RNA, NAAT PG Care Time/CCT Total # of Minutes Spent Total Time Spent with Patient: Total time spent is greater than 50% in coordination of care (as documented) at patient's floor/unit and/or counseling patient: Coding Level of Care Code 90407 SUB INP/OBS CARE 3/50MIN Diagnoses Transient vision disturbance of left eye H53.9 AF (amaurosis fugax) G45.3 Acute encephalopathy G93.40 Bilateral headaches R51.9 Arteriosclerosis of carotid artery I65.29 HTN (hypertension) I10 Hx of right coronary artery stent placement Z95.5 Vitamin B12 deficiency E53.8 Hyperlipidemia E78.5 CAD (coronary artery disease) I25.10 Hx of CABG Z95.1 Pre-diabetes R73.03
--- NOTE | 2023-01-02 20:13 | Billing Data ---
Date of Service January 02, 2023 Coding Level of Care Code 76824 INT INP/OBS CARE
[2023-01-03 07:05] LABS: BUN Creatinine Ratio 22.3 (10-20); Calcium 8.9 mg/dl (8.5-10.1); Chol HDL Ratio 2.8 (0-5); Creatinine Clr Calc Pharmacy 44.4 ml/min; Est GFR (African American) 63.7 ml/min; Est GFR (Non-African American) 54.9 ml/min; Potassium 4.5 mmol/L (3.5-5.1)
[2023-01-03] MEDS: ASPIRIN 81 MG ECTAB PO SCH (08:31)
[2023-01-03] MEDS: ROSUVASTATIN CALCIUM 20 MG TAB PO SCH (08:31)
[2023-01-03] MEDS: ISOSORBIDE MONO EXTENDED REL 30 MG TABCR PO SCH (08:32)
[2023-01-03] MEDS: METOPROLOL SUCC 50MG EXT REL TAB PO SCH (08:32)
[2023-01-03] MEDS: CYANOCOBALAMIN (B-12) 500 MCG TABLET PO SCH (08:32)
[2023-01-03] MEDS ORDERED: CLOPIDOGREL BISULFATE 75 MG TAB PO SCH (09:00)
--- NOTE | 2023-01-03 09:37 | Neurology Consultation ---
Date of Consultation January 03, 2023 Assessment & Plan (1) Alteration in vision: Plan NEUROLOGY CONSULTATION Assessment & Plan: Impression: unclear transient vision change. presentation is not classic for Amaurosis fugax. mri brain negative. not suggestive of temporal arteritis at this point. Recommendations: -no need for further stroke work up . i do not feel she needs temporal arteritis work up at this point. not much to offer at this point. avoid sudden position change and dehydration and hypotension. will sign off. Dr. Pro Nuñez MD [facility] Neurology Chief Complaint: vision change History of Present Illness: pt with vague left eye vision change with blurring. not classic darryl coming down or up vision loss for Amaurosis fugax. pt now feeling better and symptom free. mri brain negative. CTA essentially negative. doing well. Admission/Initial HPI documentation: 87 yo female with PMHx of CABG, HTN, HLD, B12 deficiency, and CAD presented for transient L sided vision loss. She was referred to the ER by her eye doctor. Last evening she had a transient episode where a black curtain came down her left eye resulting in vision loss. She is unsure how long the vision loss lasted but it was "minutes" not "hours." Otherwise asymptomatic at the time. Once vision returned she was back to her baseline. She does endorse a h/o distant cataract surgery as well as glaucoma in the right eye.Has not had an episode like this before. Denies chest pain, sob, headache, tinnitus, abd pain, dysuria, constipation/diarrhea, extremity weakness. Of note, prior to being seen by myself, nursing stated that patient endorsed seeing spiders crawling on the amos and a person that was not actually in the room. Unclear but when seen by myself she denied any hallucinations. Past Medical History: See chart Meds: See chart I personally reviewed all of the medications Social & Family History: See chart Review of Systems: Per initial HPI on admission. Physical Exam: GEN: NAD HEENT: Normocephalic Neuro: Mental status:A & O x 3.No dysarthria or aphasia.No neglect. Fluent speech. No apraxia Cranial Nerves:II-XII intact Motor:Normal bulk and tone,5/5 strength x 4 extremities Coordination:Intact FTN testing Reflexes: down going toes shawn Sensation: Intact x 4 extremities to touch Chart reviewed I have spent more than 50% educating patient about potential diagnosis and neurological evaluation and coordinating care with patient's treatment team. Total time spent (including chart review and coordination of care): 80 min (this includes chart review). History of Present Illness Attending Physician: Domenico Patel Allergies Allergy/AdvReac Type Severity Reaction Status Date / Time Sulfa (Sulfonamide Allergy Mild RASH Verified 09/02/22 10:19 Antibiotics) Home Medications Medication Instructions Recorded Confirmed Type aspirin 81 mg tablet 81 mg PO DAILY 06/26/19 09/02/22 History cyanocobalamin (vitamin B-12) 1,000 mcg PO DAILY #1 tab 06/26/19 09/02/22 History 1,000 mcg tablet diclofenac sodium 1 % topical gel 2 gm topical QID #1 g 06/26/19 09/02/22 History nitroglycerin 0.4 mg sublingual 0.4 mg sublingual Q5M PRN chest 06/26/19 09/02/22 History tablet pain #25 tabs vit C 226 mg-vit E 90 mg-copper 1 cap PO BID 06/26/19 09/02/22 History 0.8 mg-zinc oxide-lutein 5 mg capsule diclofenac sodium 50 mg 50 mg PO BID 08/30/19 09/02/22 History tablet,delayed release cholecalciferol (vitamin D3) 50 4,000 unit PO DAILY 07/31/21 09/02/22 History mcg (2,000 unit) capsule ondansetron 4 mg disintegrating 4 mg PO TID PRN nausea and 02/19/22 09/02/22 Rx tablet vomiting #30 tabs famotidine 40 mg tablet 40 mg PO DAILY PRN acid reflux #90 03/12/22 09/02/22 Rx tabs isosorbide mononitrate 30 mg 30 mg PO DAILY #90 tabs 08/26/22 09/02/22 Rx tablet,extended release 24 hr metoprolol succinate 50 mg 50 mg PO DAILY #90 tabs 08/26/22 09/02/22 Rx tablet,extended release 24 hr rosuvastatin 40 mg tablet 40 mg PO DAILY #90 tabs 08/26/22 09/02/22 Rx tramadol 50 mg tablet 50 mg PO Q12H PRN pain #60 tabs 09/02/22 09/02/22 Rx Patient History Medical History Acid reflux Acute sinusitis Arteriosclerosis of carotid artery CAD (coronary artery disease) Chronic sinusitis Depression with anxiety Hyperlipidemia Hypertension Large pleural effusion Osteoarthritis of knee Osteoporosis Peripheral vascular disease Pre-diabetes Urinary tract infection Vitamin B12 deficiency Vitamin D deficiency Surgical History History of arthroscopy of knee History of cataract surgery Hx of CABG Hx of right coronary artery stent placement Family History Father Atrial fibrillation Cancer Brother Atrial fibrillation Denies family history of Colon cancer Ovarian cancer Prostate cancer Myocardial infarction Breast cancer Social History Smoking Status: Never smoker Hx Alcohol Use: No Hx Substance Use: No Preferred Language: Citizen Of [place] Communication Ability: Effective Visual Impairment: No Limitations Hearing Ability: Normal Cardiology Clinical Consultant Required: No Beliefs That Will Affect Care: None marital status: Current Living Situation: Alone current occupational status: retired Other Information That Helps Us Care for You: No Feels Safe at Home: Yes Safety Concerns: Feels Safe At This Time Childhood Exposure to Second-Hand Smoke: No Dental Care, Regularly: Yes Physical Activity Frequency: Daily Seatbelt Use: always Sunscreen Use: No Assistive Devices: Cane, Glasses and Walker Results & Data ([facility]) Vital Signs (Past 12 Hours) Vital Signs Temp Pulse Pulse Resp BP Pulse Ox O2 Del Method 01/03/23 07:29 67 01/03/23 06:38 36.6 C 65 16 119/64 92 Room Air 01/02/23 23:42 63
[2023-01-03] MEDS: cephALEXin 500 MG CAP PO SCH ×2 (09:38→17:00)
--- NOTE | 2023-01-03 16:35 | Discharge Summary ---
Date of Service January 03, 2023 Admission HPI Per Admitting Provider 87 yo female with PMHx of CABG, HTN, HLD, B12 deficiency, and CAD presented for transient L sided vision loss. She was referred to the ER by her eye doctor. Last evening she had a transient episode where a black curtain came down her left eye resulting in vision loss. She is unsure how long the vision loss lasted but it was "minutes" not "hours." Otherwise asymptomatic at the time. Once vision returned she was back to her baseline. She does endorse a h/o distant cataract surgery as well as glaucoma in the right eye.Has not had an episode like this before. Denies chest pain, sob, headache, tinnitus, abd pain, dysuria, constipation/diarrhea, extremity weakness. Of note, prior to being seen by myself, nursing stated that patient endorsed seeing spiders crawling on the amos and a person that was not actually in the room. Unclear but when seen by myself she denied any hallucinations. Discharge Exam gen - pleasant, mild confusion eyes - PERRL, EOMI, no nystagmus head - no tenderness to palpation over either temporal artery; no bruits b/l neck - no JVD heart - RRR, s1 s2 lungs - CTA b/l abd - soft NT ND BS+ ext - no edema, pulses 2+ b/l neuro - strength 5/5 x 4 exts; speech clear Discharge Data Allergies Allergy/AdvReac Type Severity Reaction Status Date / Time Sulfa (Sulfonamide Allergy Mild RASH Verified 09/02/22 10:19 Antibiotics) Consultations 01/02/23 00:11 ED Decision to Admit Stat 01/02/23 15:45 Consult Neurology Routine Ordered Studies 01/01/23 22:43 CT angio head w con Stat CT angio neck with con Stat CT head/brain wo con Stat 01/02/23 09:28 MR brain wo con Routine Hospital Course (1) Transient vision disturbance of left eye: symptoms lasted several minutes then resolved seen by her eye physician prior to admission - to her recollection her eye exam was wnl history suggestive of #2 below although carotid arteries on CTA did not show stenoses, she has a considerable amount of plaque at the carotid bulbs a small piece of plaque from the left carotid bulb could have caused her event oddly prior carotid duplex studies showed considerable b/l ICA stenosis; last u/s was 09/2022 showing 50-69% stenosis in both ICAs will review all of this with radiology tomorrow am alternatively, given her headaches, GCA is in the differential; normal sed rate and crp argue against such but 5-15% of GCA cases have normal inflammatory markers MRI brain today without acute CVA of the occipital lobes oddly there are b/l orbital lesions - ?hemangiomas? echo without source of embolus plan for neuro consult while here add plavix to her asa for secondary prevention check lipids AM, cont statin in meantime move patient to med-tele - r/o PAF consider 30-day event monitor at home consider temporal artery bx of left TA given her headaches and this visual event again need to sort out the ICA stenosis issue and the discrepant studies as above (2) AF (amaurosis fugax): left eye - see #1 above (3) Acute encephalopathy: 2nd to TIA event? 2nd to UTI? other? does patient have baseline cognitive impairment? I spoke with the pt's son by phone and he reported that he has noted his mother to have some memory problems of late would refer to neurology post-discharge for neuropsych testing (4) Bilateral headaches: reports she has had them "For years" but no mention in her medical record of such see #1 above re: discussion about ?GCA and need for TA biopsy? (5) Arteriosclerosis of carotid artery: plaque - heavy - noted on each carotid bulb cont asa add plavix cont high-intensity statin with crestor again - carotid duplex study 09/2022 showed 50-60% stenosis of each ICA b/l however, CTA carotids this admission did not show these stenoses will review the films with radiology in am (6) HTN (hypertension): well controlled cont BB cont imdur (7) Hx of right coronary artery stent placement: noted no ischemic symptoms at this time (8) Vitamin B12 deficiency: B12 level was 125 in fall 2021 repeat level am it does appear she has been taking replacement B12 at home per the med list (9) Hyperlipidemia: cont statin lipid profile in am (10) CAD (coronary artery disease): cont asa cont statin cont BB cont imdur echo today with normal EF and no WMA (11) Hx of CAB10/2007 - [facility] (12) Pre-diabetes: a1c <6.5% diet control Plan updated pt's son & daughter in law by phone this evening transfer to med/tele to place on monitor to r/o a.fib Home Health Attestation I certify that this patient is under my care and that I, or a physicians graphic design assistant working with me, had a face to-face encounter that meets the home health pzku-nt-iqam encounter requirements with this patient. The encounter with the patient was in whole, or in part, for the following medical condition, which is the primary reason for home health care (list medical condition): I certify that, based on my findings, the following services are medically necessary home health services: My clinical findings support the need for the above services because: Further, I certify that my clinical findings support that this patient is homebound (i.e. absences from home require considerable and taxing effort and are for medical reasons or judaism services or infrequently or of short duration when for other reasons) because: Certification for Home Health Services: Based on the above findings, I certify that this patient is confined to the home and needs intermittent group home care, physical therapy and/or speech therapy or continues to need occupational therapy. The patient is under my care, and I have initiated the establishment of the plan of care. This patient will be followed by a physician who will periodically review the plan of care. Discharge Plan Discharge Items Patient Disposition: Home - Home Health Services Reason For Visit: VISION LOSS Discharge Diagnosis: 1. Temporary vision loss of left eye - resolved; suspected cause - plaque build-up in the left carotid artery 2. Urinary tract infection 3. h/o Open heart surgery ("CABG") 4. Coronary artery disease 5. Vitamin B12 deficiency 6. Concern for the beginnings of mild memory loss Activity: As commented below Activity Comment: home activities as tolerated Driving/Machine Use: NO DRIVING until cleared by your eye physician and family doctor Non-emergency contact: Primary Care Provider and Specialist Call non-emergency contact if: you have any medication questions and your symptoms worsen Follow-up/Referrals: Jevon Ortega MD [Primary Care Provider] - (see Dr Ortega within 5 days ) Jevon Mart MD [Surgeon] - (See [facility] for follow-up of your vision) Diet: Heart Healthy Addtl Attending Provider Instructions: Mrs Antonio, You were hospitalized due to an episode of vision loss in your left eye. This lasted a few minutes then resolved. We performed an MRI of the brain - no stroke (either old or new) was found. We performed CT scans of the arteries of the head & neck -- neither showed any blockages that would require surgery. However, your carotid arteries in your neck do have a considerable amount of plaque in them. Finally, your echocardiogram (heart ultrasound) was normal; we did not see any blood clots or other abnormalities. I suspect that a tiny piece of plaque in your left carotid artery went up to the left eye causing your visual event. To prevent a future event like this - to prevent any type of stroke event - please do the following - 1. Take aspirin 81mg daily EVERY DAY. I have sent a prescription to [facility] for you. 2. Continue your cholesterol medication Rosuvastatin 40mg daily EVERY DAY. 3. Please STOP diclofenac anti-inflammatory pill. You can take [id number] tylenol for aches & pains. 4. We will be mailing you a 30-day heart monitor to your home. It will contain instructions on how to use it. This monitor is to make sure you are not having a heart rhythm called "afib" that can lead to strokes. The monitor will arrive within about [address] Rice will get the results. Additional recommendations - 1. cephalexin 500mg twice daily x 7 days beginning tomorrow morning, 01/04/23; this is for urinary tract infection. Prescription sent to [facility] for you. 2. please STOP any tramadol use as this medicaton can cause dizziness, can impair your senses, make you sleepy, etc. 3. TAKE vitamin B12 1000mcg daily x 1 year. It have sent this prescription to [facility] for you. However, the pharmacy may ask you to purchase it [id number]. 4. Again - NO DRIVING until cleared by Dr Ortega and your eye doctor. 5. For sleep you can purchase [id number] melatonin - 3mg once nightly at bedtime. Follow-up - * see Dr Ortega THIS WEEK * see your eye doctor THIS WEEK Return to [facility] if * you have recurrent episodes of vision loss * you have difficulty swallowing or speaking * your arms and/or legs become weak on one side * you have chest pains * you have shortness of breath * any other concerns It was our pleasure to care for you! Dr Patel Pending Studies at Discharge: No Stand-Alone Forms: My [facility], Smoking Cessation Medications and DC Order Prescriptions: New aspirin 81 mg Tablet,Delayed Release (Dr/Ec) 81 mg PO DAILY Qty: 90 3RF Rx Instructions: for prevention of heart attack and stroke cephalexin 500 mg Capsule 500 mg PO BID 7 Days Qty: 14 0RF Rx Instructions: first dose on 01/04/23 Continued cholecalciferol (vitamin D3) 50 mcg (2,000 unit) capsule 4,000 unit PO DAILY ondansetron 4 mg tablet,disintegrating 4 mg PO TID PRN (Reason: nausea and vomiting) Qty: 30 1RF vit R-B-cnpcjv-zinc-lutein 226 mg-200 unit -5 mg-0.8 mg capsule 1 cap PO BID diclofenac sodium 1 % gel 2 gm topical QID Qty: 1 Patient Comments: to upper extremities; do not apply more than 8 grams daily to any one af fected joint nitroglycerin 0.4 mg tablet, sublingual 0.4 mg SL Q5M PRN (Reason: chest pain) Qty: 25 famotidine 40 mg tablet 40 mg PO DAILY PRN (Reason: acid reflux) Qty: 90 3RF isosorbide mononitrate 30 mg tablet extended release 24 hr 30 mg PO DAILY Qty: 90 3RF metoprolol succinate 50 mg tablet extended release 24 hr 50 mg PO DAILY Qty: 90 3RF rosuvastatin 40 mg tablet 40 mg PO DAILY Qty: 90 3RF cyanocobalamin (vitamin B-12) 1,000 mcg tablet 1,000 mcg PO DAILY Qty: 90 3RF Discontinued diclofenac sodium 50 mg tablet,delayed release (DR/EC) 50 mg PO BID tramadol 50 mg tablet 50 mg PO Q12H PRN (Reason: pain) Qty: 60 0RF Krames/Other Patient Handouts: Prediabetes, 5 Steps for Eating Healthier Admission Data Admit Date/Time: 01/02/23 01:33 Attending Provider: Domenico Patel Admit Provider: Nick Vivas Primary Care Provider: Jevon Ortega Other Providers: Wilberto Damon ; Pro Nuñez Other Interventions: Discharge Summary Assessment (RN) Last Done: 01/03/23 16:26 Coding Diagnoses Transient vision disturbance of left eye H53.9 AF (amaurosis fugax) G45.3 Acute encephalopathy G93.40 Bilateral headaches R51.9 Arteriosclerosis of carotid artery I65.29 HTN (hypertension) I10 Hx of right coronary artery stent placement Z95.5 Vitamin B12 deficiency E53.8 Hyperlipidemia E78.5 CAD (coronary artery disease) I25.10 Hx of CABG Z95.1 Pre-diabetes R73.03
== END 2023-01-03 17:41 | disposition home health service (06) ==
LOC: 3N 17:57 → ED 17:57 → SUATTDRO 01-02 01:33 → 3N 01-02 02:58 → 2N 01-02 15:12